=== PATIENT | female | born 1980 | race Caucasian/White ===

== ENCOUNTER → 2021-10-01 | Outpatient (CLI) | payer SELFPAY ==
[~2021-10-01] MED LIST: BCP; BUTASPCAFT PO; CIPR500 PO; CYCL10 PO; DICL.1SO OD; HYDACE5 PO; NAPR500 PO; NORT25 PO; OMEP20ER PO; TOBDEXOPSU OP; TRAZ100 PO
[2021-10-02 16:07] LABS: HPV 16 Negative (Negative); HPV 18 Negative (Negative); HPV OTHER HR TYPES Negative (Negative)
== END | disposition home or self-care (01) ==
LOC: LAB SHORT 15:00
PROVIDERS: Obstetrics & Gynecology
DX: Z12.4 Encounter for screening for malignant neoplasm of cervix (principal)
CPT/HCPCS: 87624; G0123